=== PATIENT | male | born 1960 | race Caucasian/White ===

== ENCOUNTER 2023-06-17 10:54 | Day surgery (SDC) | payer OTHER ==
[~2023-06-17] VITALS: Ht 170.2 cm; Wt 125.2 kg
[2023-06-17] MEDS ORDERED: diphenhydrAMINE 50 MG/ML VIAL ONE (11:59)
[2023-06-17] MEDS ORDERED: MIDAZOLAM 2 MG/2 ML VIAL ONE (11:59)
[2023-06-17] MEDS ORDERED: fentaNYL citrate 0.05 MG/ML VIAL ONE (11:59)
[2023-06-17] MEDS ORDERED: LIDOCAINE 2% 100 MG/5 ML UJET TP ONE (12:00)
[2023-06-17] MEDS ORDERED: MIDAZOLAM 2 MG/2 ML VIAL IVP ONE (12:40)
[2023-06-17] MEDS ORDERED: fentaNYL citrate 0.05 MG/ML VIAL IVP ONE (12:40)
== END 2023-06-17 13:06 | disposition home or self-care (01) ==
LOC: MDS 10:54 → MMU 10:55 → MDS 13:06
PROVIDERS: ATTEND Internal Medicine Gastroenterology
DX: Z12.11 Encounter for screening for malignant neoplasm of colon (principal); I10 Essential (primary) hypertension; E11.9 Type 2 diabetes mellitus without complications; E78.5 Hyperlipidemia, unspecified; E66.9 Obesity, unspecified; K21.9 Gastro-esophageal reflux disease without esophagitis; G47.30 Sleep apnea, unspecified; Z99.89 Dependence on other enabling machines and devices; Z98.890 Other specified postprocedural states; Z79.899 Other long term (current) drug therapy
CPT/HCPCS: 45378; J2250; J3010; J1200